=== PATIENT | female | born 1965 | race Caucasian/White ===

== ENCOUNTER 2018-03-01 06:54 | Inpatient (IN) | payer OTHER ==
[2018-02-03 11:30] VITALS: Ht 172.7 cm; Wt 114.1 kg
[2018-02-03 12:02] LABS: BASO % 0.6 %; BASO ABS # 0.04 K/uL (0-0.2); EOS % 1.6 %; EOS ABS # 0.11 K/uL (0-0.5); HEMATOCRIT 40.9 % (37-47); HEMOGLOBIN 13.4 g/dL (12.0-16.0); IG# 0.01 K/uL (0.00-0.02); LYMPH % 31.7 %; LYMPH ABS # 2.14 K/uL (1.2-3.4); MEAN CELL VOLUME 88.9 fL (80-100); MEAN CORPUSCULAR HEMOGLOBIN 29.1 pg (25-34); MEAN CORPUSCULAR HGB CONC 32.8 g/dl (32-36); MEAN PLATELET VOLUME 11.2 fL (7.4-10.4); MONO % 10.2 %; MONO ABS # 0.69 K/uL (0.11-0.59); NEUT % 55.8 %; NEUT ABS # 3.76 K/uL (1.4-6.5); PLATELET COUNT 289 K/uL (130-400); RED CELL DISTRIBUTION WIDTH CV 13.4 % (11.5-14.5); RED CELL DISTRIBUTION WIDTH SD 43.7 fL (36.4-46.3); WHITE BLOOD COUNT 6.75 K/uL (4.8-10.8)
--- NOTE | 2018-02-03 12:04 | PAT Medication Instructions ---
Service Date Feb 03, 2018. Current Home Medication List Esomeprazole Magnesium (Nexium), 40 MG PO QPM Ferrous Sulfate (Kp Ferrous Sulfate), 1 TAB PO QD PRN for prn Magnesium Oxide (Mag-Ox), 400 MG PO QD PRN for prn Metoprolol Succ (Toprol Xl) (Toprol-Xl), 50 MG PO HS Terbinafine Hcl (Terbinafine Hcl), 1 TAB PO QPM Medication Instructions For Your Scheduled Surgery - Hold the following medications the morning of surgery: Ferrous Sulfate (Kp Ferrous Sulfate), 1 TAB PO QD PRN for prn Magnesium Oxide (Mag-Ox), 400 MG PO QD PRN for prn - Take the following medications the morning of surgery with a sip of water: Esomeprazole Magnesium (Nexium), 40 MG PO - Take the following medications as scheduled the night before surgery: Esomeprazole Magnesium (Nexium), 40 MG PO Ferrous Sulfate (Kp Ferrous Sulfate), 1 TAB PO QD PRN for prn (if needed) Magnesium Oxide (Mag-Ox), 400 MG PO QD PRN for prn (if needed) Metoprolol Succ (Toprol Xl) (Toprol-Xl), 50 MG PO HS Terbinafine Hcl (Terbinafine Hcl), 1 TAB PO QPM If you have any questions please call us at [phone] or [phone] or [phone]
[2018-02-03 12:11] LABS: PTT PATIENT 26.7 SECONDS (21.0-31.0)
--- NOTE | 2018-02-03 12:36 | DIAGNOSTIC IMAGING REPORT ---
TWO VIEW CHEST CLINICAL HISTORY: Preoperative examination. FINDINGS: PA and lateral chest radiographs are obtained. No prior studies are available for comparison at the time of dictation. The cardiomediastinal silhouette is unremarkable. The lungs and pleural spaces are clear. There is no pneumothorax. The bony thorax appears intact. IMPRESSION: No active disease in the chest. Electronically signed by: Jerrod Jarquin M.D. 02/03/2018 12:35 PM Dictated Date/Time: 02/03/2018 12:34 PM
[2018-02-03 12:39] LABS: HEMOGLOBIN A1C 5.6 % (4.5-5.6)
[2018-02-03 13:28] LABS: ALBUMIN 3.5 gm/dl (3.4-5.0); CALCIUM 9.1 mg/dl (8.5-10.1); CREATININE 0.83 mg/dl (0.60-1.20)
--- NOTE | 2018-02-10 10:57 | HISTORY & PHYSICAL EXAMINATION ---
DATE OF ADMISSION: 03/01/2018 CHIEF COMPLAINT: Right knee pain. HISTORY OF PRESENT ILLNESS: Libra is a 53-year-old female with a multiple year history of right knee pain. The patient rates her pain 9/10. She has pain with her daily activities. She has limited standing and walking tolerance. Pain is worse with weightbearing. The patient has had injections, bracing, knee arthroscopy, PT, and NSAIDs over the years without relief. She has failed conservative treatment and is scheduled for right knee replacement. PAST MEDICAL HISTORY: Hypertension. She denies heart disease, diabetes, or DVT. PAST SURGICAL HISTORY: Right knee arthroscopy and hysterectomy. SOCIAL HISTORY: The patient rarely drinks alcohol. She denies tobacco use. She lives in a 2-leonardo home. 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 FAMILY HISTORY: Negative for DVT. MEDICATIONS: Ferrous sulfate 325 mg daily, mag oxide 400 mg, metoprolol 50 mg, Nexium 40 mg. ALLERGIES: None. REVIEW OF SYSTEMS: See HPI. Ten other systems reviewed, all negative. PHYSICAL EXAMINATION: VITAL SIGNS: Height 5 foot 8 inches, weight 250 pounds, BMI 38. GENERAL: This is a well-developed, well-nourished female who is alert and oriented x3. Mood and affect are appropriate. HEENT: Normocephalic, atraumatic. Mucous membranes are moist and intact. NECK: Supple without lymphadenopathy. HEART: Regular rate and rhythm without murmurs, rubs, or gallops. LUNGS: Clear to auscultation without wheezes or rhonchi. ABDOMEN: Soft and nontender. Bowel sounds are equal and active. EXTREMITIES: No ecchymosis, redness, or warmth. She has moderate Hinkle cyst, moderate effusion. She has no distal edema. She has neutral alignment. Range of motion is from 5-110 degrees with +1 medial laxity. She is neurovascularly intact with +5/5 strength. X-RAY EXAMINATION: AP and lateral views show joint space narrowing and osteophyte formation. IMPRESSION: Degenerative joint disease, right knee. PLAN: The patient will be admitted for a right total knee arthroplasty. We will plan on aspirin for DVT prophylaxis. The patient will have home health upon discharge.
[2018-02-28 12:56] VITALS: BP 121/78; PULSE 74; TEMP 37.2; O2SAT 100
[2018-03-01] VITALS (8 sets, daily range): BP systolic 106–143; BP diastolic 65–83; PULSE 71–90; TEMP 36.5–37.3; O2SAT 93–99
[~2018-03-01] VITALS: Ht 172.7 cm; Wt 114.1 kg
[~2018-03-01 06:54] MED LIST: ACETAMINOPHEN 500 MG TAB PO SCH; CEFAZOLIN 2000MG IV PUSH 15 ML IV SCH; CeleBREX 200 MG CAP PO SCH; DEXAMETHASONE 4 MG TAB PO SCH; FAMOTIDINE 20 MG TAB PO SCH; FERR1TAB13 PO; GABAPENTIN 900 MG PO SCH; LACTATED RINGER'S 1000ML 500 ML IV SCH; MAGN400T6 PO; METO50TA8 PO; NXM/40 PO; ROPIVACAINE 5MG/ML 30 ML 150 MG, BUPIVACAINE 0.5% MPF INJ 30 ML, EpINEphrine HCL INJ 0.... INFIL SCH; TERB250T47 PO
--- NOTE | 2018-03-01 07:01 | History & Physical Bridge Note ---
H&P Re-Evaluation Bridge Note: I have examined the patient, reviewed the History & Physical and in the interval since the performance of the History & Physical I have noted the following changes of clinical significance: No changes noted
[2018-03-01] MEDS ORDERED: BUPIVACAINE 0.25% 30 ML VIAL ONE (07:27)
[2018-03-01] MEDS ORDERED: BUPIVACAINE 0.5 % 5 MG/1 ML PF 10ML VIAL ONE (07:28)
[2018-03-01] MEDS ORDERED: MIDAZOLAM HCL 1 MG/ML 2ML VIAL ONE (08:00)
[2018-03-01] MEDS ORDERED: FENTANYL CITRATE INJ 50 MCG/1 ML 2 ML VIAL ONE ×4 (08:01→11:22)
[2018-03-01] MEDS ORDERED: EpHEDrine SULFATE INJ 50 MG/ML AMP IV PRN (08:30)
[2018-03-01] MEDS ORDERED: ATROPINE SULFATE 0.1 MG/ML 5ML SYR IV PRN (08:30)
[2018-03-01] MEDS ORDERED: PHENYLEPHRINE 100MCG/ML 5ML SYR IV PRN (08:30)
[2018-03-01] MEDS ORDERED: FENTANYL CITRATE INJ 50 MCG/1 ML 2 ML VIAL IV PRN (08:30)
[2018-03-01] MEDS ORDERED: HYDROmorphone INJ 1 MG/ML SYR IV PRN (08:30)
[2018-03-01] MEDS ORDERED: PROMETHAZINE HCL INJ 12.5 MG in SODIUM CHLORIDE 0.9% 50ML 50 ML IV PRN (08:30)
[2018-03-01] MEDS ORDERED: ONDANSETRON INJ 2 MG/ML 2 ML VIAL IV PRN ×2 (08:30→11:15)
[2018-03-01] MEDS ORDERED: POVIDONE-IODINE OP SOLN 30 ML BTL ONE (08:38)
[2018-03-01] MEDS ORDERED: ORTHO JOINT ANESTHETIC ONE (08:38)
[2018-03-01] MEDS ORDERED: BACITRACIN 50000 UNIT VIAL ONE (08:38)
[2018-03-01] MEDS ORDERED: ROPIVACAINE 0.5% 5 MG/ML 30 ML VIAL ONE (09:00)
[2018-03-01] MEDS: TRANEXAMIC ACID INJ 1,000 MG x 2 Bags IV SCH ×4 (09:02→12:24)
--- NOTE | 2018-03-01 10:26 | [facility] Post Operative Brief Note ---
Immediate Operative Summary Operative Date March 01, 2018. Pre-Operative Diagnosis Right Knee Degenerative Joint Disease Post-Operative Diagnosis Right Knee Degenerative Joint Disease Procedure(s) Performed Right Total Knee Arthroplasty utilizing [employer] journey to size 5 femur 4/tibia 9 polyethylene [address] Adair [employer] Molder Surgeon(s) ODALYS Sanches Estimated Blood Loss 5 ml Findings Consistent with Post-Op Diagnosis Specimens A. Right Knee Bone and Tissue Anesthesia Type General Complication(s) none Disposition Disposition: Recovery Room / PACU
--- NOTE | 2018-03-01 10:27 | [facility] Operative Report ---
Operative Report Operative Date March 01, 2018. Pre-Operative Diagnosis Right Knee Degenerative Joint Disease Post-Operative Diagnosis Right Knee Degenerative Joint Disease Procedure(s) Performed Right Total Knee Arthroplasty utilizing [employer] nephew journey to size 5 femur 4/tibia 9 polyethylene [address] Adair Edge Dyer Surgeon(s) ODALYS Sanches Estimated Blood Loss 5 ml Findings This time surgery patient did have evidence of bone the bone changes subchondral sclerosis cystic changes marginal osteophytes varus alignment pseudolaxity of her medial collateral ligament with the eburnated bone changes Specimens A. Right Knee Bone and Tissue Anesthesia Type General Complication(s) none Disposition Recovery Room / PACU Indications Patient presents after failed attempts at conservative management including physical therapy anti-inflammatories relative rest activity modification or clinical examination consistent of a moderate effusion medial joint line pain tenderness crepitation palpable osteophytes and radiographic findings include subchondral sclerosis cystic changes marginal osteophytes consistent with that of tricompartmental degenerative joint disease Description of Procedure After proper prepping and draping of the Right lower extremity anterior midline incision was made over the region of the extensor extensor mechanism after meticulous hemostasis was obtained and maintained in subcutaneous tissues a medial parapatellar incision was made The patella was subluxed lateralward the medial lateral gutter were cleaned from any hypertrophic synovitis and scar tissue of the distal femoral block was placed and the distal femoral osteotomy cut was made subsequently the chamfers anterior and posterior osteotomy cuts were made utilizing the 4-in-1 block the tibia was subsequently subluxed anteriorward medial and ateral meniscal remnants were excised in their entirety remnants of the anterior and posterior cruciate ligaments were excised in their entirety excellent exposure of the proximal tibia was obtained the tibial osteotomy guide was placed on the proximal tibial osteotomy cut was made once again the knee was irrigated with copious amounts of sterile saline solution the patella was subsequently everted lateralward thickened scar tissue around the patella was removed the patella was subsequently cut utilizing a freehand technique and was drilled prepared for final preparation and placement of patella socially flexion-extension gaps were checked and the equal and symmetric trials were placed to the appropriate femoral and tibial trials with poly-spacer being placed for equal flexion and extension gaps and full range of motion including extension to 0 and flexion to 140 the trial components after having been taken to recovery range of motion was subsequently removed meticulous hemostasis was obtained and maintained subsequently a knee block injection of joint cocktail including ropivacaine 0.5% 150 mg. Bupivacaine 0.5 % epinephrine 1-200,030 mL's toradol 30 mg dexamethasone 4 mg ketamine 10 mg clonidine 100 micrograms normal saline solution 30 mg was infiltrated into the soft tissues of the posterior knee medial lateral gutters and periosteal synovium special attention was paid to protect neurovascular structures at all times subsequently trial components having been removed the knee was irrigated with sterile saline solution. debris was removed the proximal tibia was subsequently prepared and was made ready for the placement of the tibial component tibial component was also cemented and tamped into position the femoral component was subsequently placed and cemented in the position the patellar component was subsequently cemented in position because hemostasis once again obtained and maintained wound having been thoroughly irrigated with debridement and debridement lavage was performed as well as a medial parapatellar incision closed with #1 Vicryl in interrupted fashion subcutaneous was closed with #2 Vicryl skin was closed with skin clips. PA-C was necessary for prepping and drapping as well as wound closure of deep fascia Sub cutaneous tissue and skin and was necessary for the case. A sterile compressive dressing was placed patient was taken to recovery in stable condition of report dictated by Giovany I attest to the content of the Intraoperative Record and any orders documented therein. Any exceptions are noted below. I attest to the content of the Intraoperative Record and any orders documented therein. Any exceptions are noted below.
[2018-03-01] MEDS ORDERED: DEXAMETHASONE SOD INJ 4 MG/ML VIAL ONE (10:43)
[2018-03-01] MEDS ORDERED: ONDANSETRON INJ 2 MG/ML 2 ML VIAL ONE (10:43)
[2018-03-01] MEDS ORDERED: METOCLOPRAMIDE HCL INJ 5 MG/ML 2 ML VIAL ONE (10:43)
[2018-03-01] MEDS ORDERED: PROPOFOL IV EMULSION 10 MG/ML 20 ML VIAL ONE (10:43)
[2018-03-01] MEDS ORDERED: DiphenhydrAMINE HCL 50 MG/ML VIAL ONE (10:43)
[2018-03-01] MEDS ORDERED: LIDOCAINE HCL 2% 2 ML VIAL (20MG/ML) ONE (10:43)
[2018-03-01] MEDS ORDERED: KETOROLAC TROMETHAMINE 30 MG/ML VIAL IV. PRN (11:15)
[2018-03-01] MEDS ORDERED: MAGNESIUM HYDROXIDE SUSP 30 ML UDC PO PRN (11:15)
[2018-03-01] MEDS ORDERED: MAGNESIUM OXIDE 400 MG TAB PO PRN (11:15)
[2018-03-01] MEDS ORDERED: BISACODYL 10 MG SUPP PR PRN (11:15)
[2018-03-01] MEDS ORDERED: CEFAZOLIN IV 2,000 MG in DEXTROSE 5% 50ML 50 ML IV SCH (11:15)
[2018-03-01] MEDS ORDERED: ALUMINUM/MAGNESIUM/SIMETH (MAALOX MAX) 30 ML UDC PO PRN (11:15)
[2018-03-01] MEDS ORDERED: MoRPHine SULFATE 4 MG/ML 1 ML CARP\\VIAL IV PRN (11:15)
[2018-03-01] MEDS ORDERED: SOD PHOSPHATE/SOD BIPHOSPHATE ENEMA 132 ML BTL PR PRN (11:15)
[2018-03-01] MEDS ORDERED: ZOLPIDEM TARTRATE 5 MG TAB PO PRN (11:15)
[2018-03-01] MEDS ORDERED: HYDROmorphone INJ 2 MG/ML SYR/VIAL ONE (11:23)
--- NOTE | 2018-03-01 12:06 | DIAGNOSTIC IMAGING REPORT ---
R KNEE 1 OR 2 VIEWS ROUTINE CLINICAL HISTORY: 53 years-old Female presenting with AP/LATERAL IN PACU RIGHT KNEE. TECHNIQUE: Frontal and lateral views of the right knee were obtained. COMPARISON: None. FINDINGS: Postsurgical changes of total right knee arthroplasty with patellar resurfacing. Expected intra-articular and soft tissue emphysema. A surgical drain is in place. No periprosthetic fracture. The femoral component demonstrates slight varus alignment. No hardware complication. IMPRESSION: Postsurgical changes status post total right knee arthroplasty with patellar resurfacing. Correlate clinically for expected alignment given the presence of slight varus angulation of the femoral component. The report will be called/faxed according to standard departmental protocol. Electronically signed by: Bunny Abreu M.D. 03/01/2018 12:04 PM Dictated Date/Time: 03/01/2018 12:03 PM
--- NOTE | 2018-03-01 12:07 | Anesthesiology Progress Note ---
Anesthesia Post Op Note Date & Time March 01, 2018 at 12:07 Vital Signs Pain Intensity: 3 Vital Signs Past 12 Hours Date Time Temp Pulse Resp B/P (MAP) Pulse Ox O2 Delivery O2 Flow Rate FiO2 03/01/18 11:47 36.9 84 16 119/80 (93) 96 Nasal Cannula 2 03/01/18 11:43 77 12 03/01/18 11:43 75 12 98 03/01/18 11:41 126/83 03/01/18 11:38 84 19 03/01/18 11:38 85 19 98 03/01/18 11:37 81 13 99 03/01/18 11:37 81 13 03/01/18 11:36 127/86 03/01/18 11:32 77 12 100 03/01/18 11:32 79 12 03/01/18 11:31 137/84 03/01/18 11:27 83 14 03/01/18 11:27 83 14 99 03/01/18 11:26 134/93 03/01/18 11:22 87 13 100 03/01/18 11:22 84 13 03/01/18 11:21 150/87 03/01/18 11:20 140/83 03/01/18 11:17 90 17 03/01/18 11:17 90 17 100 03/01/18 11:12 92 21 119/85 97 03/01/18 11:12 36.6 89 16 119/85 (102) 97 Oxymask 10 03/01/18 11:12 93 21 03/01/18 08:03 37 71 71 143/69 97 Room Air Notes Mental Status: alert / awake / arousable, participated in evaluation Pt Amnestic to Procedure: Yes Nausea / Vomiting: adequately controlled Pain: adequately controlled Airway Patency, RR, SpO2: stable & adequate BP & HR: stable & adequate Hydration State: stable & adequate Anesthetic Complications: no major complications apparent Pt doing well. Pain controlled with adductor canal and IV pain meds due to patient refusing spinal anesthesia. VSS.
[2018-03-01] MEDS: D5W AND 1/2NSS + 20MEQ KCL 1,000 ML IV SCH ×2 (12:56→22:55)
[2018-03-01] MEDS ORDERED: MoRPHine SULFATE 10 MG/ML CARP/VIAL IV PRN (13:00)
--- NOTE | 2018-03-01 13:54 | DIAGNOSTIC IMAGING REPORT ---
R KNEE 1 OR 2 VIEWS ROUTINE CLINICAL HISTORY: post op, repeat make sure in full extension for AP COMPARISON: None. DISCUSSION: Anatomic alignment posttotal right knee arthroplasty. Good contact between prosthetic and underlying bone. Surgical drains are in position. Expected soft tissue postoperative change. IMPRESSION: Anatomic alignment posttotal right knee arthroplasty. The above report was generated using voice recognition software. It may contain grammatical, syntax or spelling errors. Electronically signed by: Dereje Hernandez M.D. 03/01/2018 1:53 PM Dictated Date/Time: 03/01/2018 1:52 PM
[2018-03-01] MEDS: ACETAMINOPHEN 500 MG TAB PO SCH ×2 (15:43→22:55)
[2018-03-01] MEDS ORDERED: FERROUS SULFATE 325 MG TAB PO PRN (17:45)
[2018-03-01] MEDS: CEFAZOLIN IV 2,000 MG in SYRINGE 0 ML IV SCH ×2 (18:24→18:27)
[2018-03-01] MEDS: OXYCODONE HCL IR 5 MG TAB (IMMEDIATE RELEASE) PO PRN (18:24)
[2018-03-01] MEDS: METOPROLOL SUCC 50MG EXT REL TAB PO SCH (21:06)
[2018-03-01] MEDS: ASPIRIN 81 MG ECTAB PO SCH (21:06)
[2018-03-01] MEDS: SENNA 8.6 MG TAB PO SCH (21:07)
[2018-03-01] MEDS: DOCUSATE SODIUM 100 MG CAP PO SCH (21:07)
[2018-03-02] VITALS (7 sets, daily range): BP systolic 103–176; BP diastolic 65–96; PULSE 66–79; TEMP 36.5–36.7; O2SAT 94–100
[2018-03-02] MEDS: OXYCODONE HCL IR 5 MG TAB (IMMEDIATE RELEASE) PO PRN ×4 (01:39→23:41)
[2018-03-02] MEDS: CEFAZOLIN IV 2,000 MG in SYRINGE 0 ML IV SCH (01:39)
[2018-03-02] MEDS: ACETAMINOPHEN 500 MG TAB PO SCH ×3 (06:14→21:41)
--- NOTE | 2018-03-02 08:15 | Orthopedic Progress Note ---
Orthopedic Progress Note Date of Service March 02, 2018. Subjective Post OP Day: 1 Reports: feeling well, Denies: chest pain, SOB, nausea / vomiting, light headedness, calf pain Objective calves soft nontender, N/V intact, capillary refill less than 2 sec., dressing C /D/I, A&O x3, toes mobile, hemovac drainage (200/200CC PER SHIFT) Date Time Temp Pulse Resp B/P (MAP) Pulse Ox O2 Delivery O2 Flow Rate FiO2 03/02/18 02:30 36.6 79 16 120/71 (87) 94 Room Air 03/02/18 00:15 Room Air 03/01/18 22:57 36.8 77 16 106/65 (79) 96 Room Air 03/01/18 21:08 86 111/67 (82) 03/01/18 19:50 36.9 90 18 120/69 (86) 96 Room Air 03/01/18 15:15 36.5 77 16 120/75 (90) 99 Nasal Cannula 2.0 03/01/18 14:25 72 16 121/76 (91) 99 03/01/18 12:45 71 15 133/77 (95) 98 03/01/18 12:15 Nasal Cannula 2.0 03/01/18 12:15 Nasal Cannula 2.0 03/01/18 12:15 37.3 80 16 128/83 (98) 93 Nasal Cannula 2.0 03/01/18 11:47 36.9 84 16 119/80 (93) 96 Nasal Cannula 2 03/01/18 11:43 77 12 03/01/18 11:43 75 12 98 03/01/18 11:41 126/83 03/01/18 11:38 84 19 03/01/18 11:38 85 19 98 03/01/18 11:37 81 13 99 03/01/18 11:37 81 13 03/01/18 11:36 127/86 03/01/18 11:32 77 12 100 03/01/18 11:32 79 12 03/01/18 11:31 137/84 03/01/18 11:27 83 14 03/01/18 11:27 83 14 99 03/01/18 11:26 134/93 03/01/18 11:22 87 13 100 03/01/18 11:22 84 13 03/01/18 11:21 150/87 03/01/18 11:20 140/83 03/01/18 11:17 90 17 03/01/18 11:17 90 17 100 03/01/18 11:12 92 21 119/85 97 03/01/18 11:12 36.6 89 16 119/85 (102) 97 Oxymask 10 03/01/18 11:12 93 21 Laboratory Results 24 Hours: Test 03/02/18 04:44 Assessment & Plan Assessment: POD#1 SP RIGHT TKA Plan: PT/OT DVT PROPH- ASA 81MG BID PAIN MANAGEMENT- OXY, TYLENOL DC PLLANING- DC HOME WITH TUESDAY
[2018-03-02 08:42] LABS: HEMATOCRIT 36.6 % (37-47); HEMOGLOBIN 11.9 g/dL (12.0-16.0); MEAN CELL VOLUME 89.9 fL (80-100); MEAN CORPUSCULAR HEMOGLOBIN 29.2 pg (25-34); MEAN CORPUSCULAR HGB CONC 32.5 g/dl (32-36); PLATELET COUNT 274 K/uL (130-400); RED CELL DISTRIBUTION WIDTH CV 13.8 % (11.5-14.5); RED CELL DISTRIBUTION WIDTH SD 45.6 fL (36.4-46.3); WHITE BLOOD COUNT 18.98 K/uL (4.8-10.8)
[2018-03-02] MEDS: DOCUSATE SODIUM 100 MG CAP PO SCH ×2 (08:53→21:00)
[2018-03-02] MEDS: D5W AND 1/2NSS + 20MEQ KCL 1,000 ML IV SCH (08:53)
[2018-03-02] MEDS: MULTIVITAMIN TAB PO SCH (08:53)
[2018-03-02] MEDS: ASPIRIN 81 MG ECTAB PO SCH ×2 (08:54→21:40)
[2018-03-02] MEDS: PANTOprazole SOD 40 MG TAB PO SCH (08:54)
[2018-03-02 09:06] LABS: CALCIUM 8.4 mg/dl (8.5-10.1); CREATININE 0.88 mg/dl (0.60-1.20); POTASSIUM 4.1 mmol/L (3.5-5.1)
[2018-03-02] MEDS: TRAMADOL HCL 50 MG TAB PO PRN ×2 (11:58→19:56)
--- NOTE | 2018-03-02 12:37 | Discharge Instructions ---
Discharge Instructions Date of Service March 02, 2018. Admission Reason for Admission: Right Knee Osteoarthritis Discharge Discharge Diagnosis / Problem: Right total knee replacement Discharge Goals Goal(s): Decrease discomfort, Improve function, Increase independence Activity Recommendations Activity Limitations: as noted below Weightbearing Status: Right weightbearing (as tolerated) . Instructions / Follow-Up Instructions / Follow-Up ACTIVITY RECOMMENDATIONS: SELF CARE INSTRUCTIONS AFTER TOTAL KNEE REPLACEMENT A. You may need to continue a physical therapy program after discharge from the hospital. There are several options available to you. Your doctor will assist you in selecting the best one for you. 1. An out-patient facility 2 to 3 times a week for therapy or home therapy. 2. Continue working on all exercises taught to you in the hospital. Your goals should be to increase bending of your knee to 90 degrees and beyond and to fully straighten your knee. B. You may progress at your own pace from walking with a walker or crutches to a cane; then to no assistive devices. C. Make walking a part of your daily routine. Be up as much as comfortable with rest periods throughout the day. Rest with leg elevation is very important. Use the ice wrap frequently for the first 3-4 weeks. D. There are no restrictions on activities. You may ride in a car, shop, participate in investment associate and all social activities. E. Wear the long elastic stockings (MADALYN hose) 20 hours a day for 2 weeks after surgery. They can be removed several times a day for laundering and for a bath. F. You may shower, no tub baths until cleared by your doctor. SPECIAL CARE INSTRUCTIONS: VERY IMPORTANT TO READ AND REVIEW A. There are a few signs you need to watch for after you are home. Call [facility] if you notice any of the followin. Increased severe knee pain. Some pain is expected especially when you exercise. 2. Increased swelling in your leg or knee; pain or swelling of the calf muscle in either lower leg. 3. Any fluid drainage from the incision. 4. Shortness of breath or chest pain. B. Please call [facility] at if you have any concerns or questions about your operation or recovery. The doctor or his nurse will return your call promptly. C. You must take antibiotics before dental work, bladder, bowel or other surgery. Your doctor will provide you with a permanent care to carry describing this precaution. IMPORTANT: * REMEMBER TO TAKE ASPIRIN, 81 MG, TWICE DAILY FOR 4 WEEKS UNLESS OTHERWISE DIRECTED. THIS IS YOUR BLOOD THINNER. * HIGH RISK PATIENTS MAY BE PRESCRIBED A STRONGER BLOOD THINNER. THIS WILL BE PROVIDED AT DISCHARGE. * CALL IF INCREASED PAIN, REDNESS, DRAINAGE OR FEVER GREATER THAT 101. * WEAR MADALYN HOSE 20 HOURS PER DAY FOR 2 WEEKS. * DERMABOND Prineo- This is a mesh tape dressing that is covered with glue. It should remain in place until the incision is properly healed, usually 10-14 days. This dressing is designed to naturally slough off. You may trim the excess mesh tape as it peels off. Incision may be briefly wet in a shower. Dry immediately by blotting with a clean, dry towel. Do not bath or swim until instructed by your doctor. Do not scratch, rub, or pick at the dressing. Do not apply any topical ointments or lotions until dressing is completely removed and/or instructed by your doctor. There may be a small piece of suture material at one end of your incision. Do not pull or trim this. If it is bothersome or catching on clothing, you may cover it with a band-aid. FOLLOW UP VISIT: If appointment is not already scheduled: Please call [facility] to make a follow-up appointment for 2 weeks after your surgery at . Current Hospital Diet Patient's current hospital diet: Regular Diet Discharge Diet Recommended Diet: Regular Diet Procedures Procedures Performed: Right Total Knee Arthroplasty utilizing [employer] journey to size 5 femur 4/tibia 9 polyethylene 29 oval patella Pending Studies Studies pending at discharge: no Laboratory Results Hemoglobin A1c Test 02/03/18 11:40 Range/Units Estimated Average Glucose 114 mg/dl Hemoglobin A1c 5.6 4.5-5.6 % Medical Emergencies . Who to Call and When: Medical Emergencies: If at any time you feel your situation is an emergency, please call 911 immediately. . Non-Emergent Contact Non-Emergency issues call your: Primary Care Provider, Surgeon . "Provider Documentation" section prepared by Dereje De La Garza. . [place] Drug Monitoring Program Search Results: patient reviewed within database, no issues identified
[2018-03-02] MEDS ORDERED: TERBINAFINE 250 MG TAB PO SCH (21:00)
[2018-03-02] MEDS: SENNA 8.6 MG TAB PO SCH (21:00)
[2018-03-02] MEDS: METOPROLOL SUCC 50MG EXT REL TAB PO SCH (21:39)
[2018-03-02] MEDS: CeleBREX 200 MG CAP PO SCH (21:40)
[2018-03-03] MEDS: ACETAMINOPHEN 500 MG TAB PO SCH (06:01)
--- NOTE | 2018-03-03 06:35 | Orthopedic Progress Note ---
Orthopedic Progress Note Date of Service March 03, 2018. Subjective Post OP Day: 2 Reports: feeling well, pain controlled w PO medications, Denies: complaints, chest pain, SOB, nausea / vomiting, light headedness, calf pain Objective calves soft nontender, N/V intact, capillary refill less than 2 sec., incision C /D/I, A&O x3, toes mobile Date Time Temp Pulse Resp B/P (MAP) Pulse Ox O2 Delivery O2 Flow Rate FiO2 03/02/18 23:30 99 Room Air 2.0 03/02/18 22:54 152/84 (106) 03/02/18 22:52 36.7 79 16 176/96 (122) 99 Room Air 03/02/18 17:30 Room Air 03/02/18 14:55 36.5 76 18 145/82 (103) 99 Room Air 03/02/18 13:25 36.7 66 16 119/69 (86) 100 Room Air 03/02/18 08:15 36.7 70 15 103/65 (78) 98 Room Air 03/02/18 07:40 Room Air Laboratory Results 24 Hours: Test 03/02/18 08:10 Hematocrit 36.6 % Hemoglobin 11.9 g/dL Prothromb Time International Ratio 1.0 Prothrombin Time 10.0 SECONDS Assessment & Plan Assessment: POD#2 SP RIGHT TKA Plan: PT/OT DVT PROPH- ASA 81MG BID PAIN MANAGEMENT- OXY, TYLENOL DC PLLANING- DC HOME WITH TUESDAY Inhouse Planning DVT Prophylaxis: TEDs, SCDs, ASA Discharge Planning Discharge Planning: home with home health
[2018-03-03] MEDS ORDERED: CLB200 PO (06:38)
[2018-03-03] MEDS ORDERED: RXC5 PO (06:38)
[2018-03-03] MEDS ORDERED: CLC100 PO (06:38)
[2018-03-03] MEDS ORDERED: ACET-24 PO (06:38)
[2018-03-03] MEDS ORDERED: ONDA-170 PO (06:38)
[2018-03-03] MEDS ORDERED: ASPI-320 PO (06:38)
[2018-03-03 06:56] VITALS: BP 135/84; PULSE 67; TEMP 36.9; O2SAT 98
[2018-03-03] MEDS: ASPIRIN 81 MG ECTAB PO SCH (07:22)
[2018-03-03] MEDS: CeleBREX 200 MG CAP PO SCH (07:23)
[2018-03-03] MEDS: DOCUSATE SODIUM 100 MG CAP PO SCH (07:23)
[2018-03-03] MEDS: PANTOprazole SOD 40 MG TAB PO SCH (07:23)
[2018-03-03] MEDS: OXYCODONE HCL IR 5 MG TAB (IMMEDIATE RELEASE) PO PRN (07:26)
[2018-03-03] MEDS: MULTIVITAMIN TAB PO SCH (07:39)
[2018-03-03] MEDS: TRAMADOL HCL 50 MG TAB PO PRN (10:33)
[2018-03-03 10:39] VITALS: BP 135/84; PULSE 67; TEMP 36.9; O2SAT 98
--- NOTE | 2018-03-03 14:23 | Discharge Summary ---
Orthopedic Discharge Summary Admission Date/Reason March 01, 2018 at 08:00 Right Knee Osteoarthritis. Discharge Date/Disposition March 03, 2018 Home with services Diagnosis Principal Diagnosis: right knee osteoarthritis Procedure(s) Performed Right Total Knee Arthroplasty utilizing Tirado neph journey to size 5 femur 4/tibia 9 polyethylene 29 oval patella Consultations NONE Medication Reconciliation New Medications: Ondansetron Hcl (Zofran) 8 Mg Tab 8 MG PO Q8 PRN for Nausea, #20 TAB Acetaminophen (Sb Non-Aspirin Extra Stre) 500 Mg Tab 1000 MG PO Q8, #63 TAB Aspirin (Aspirin EC Low Dose) 81 Mg Ectab 81 MG PO BID for 30 Days, #60 TAB Celecoxib (Celebrex) 200 Mg Cap 200 MG PO BID for 30 Days, #60 CAP Docusate Sodium (Docusate Sodium) 100 Mg Cap 100 MG PO BID for 10 Days, #20 CAP Oxycodone HCl (Oxycodone HCl) 5 Mg Tab 5-10 MG PO Q4H PRN for Pain, #60 TAB Continued Medications: Esomeprazole Magnesium (Nexium) 40 Mg Capcr 40 MG PO QPM, CAP Ferrous Sulfate (Kp Ferrous Sulfate) 325 Mg Tab 1 TAB PO QD PRN for prn for 30 Days, #30 TAB 3 Refills Magnesium Oxide (Mag-Ox) 400 Mg Tab 400 MG PO QD PRN for prn, TAB Metoprolol Succ (Toprol Xl) (Toprol-Xl) 50 Mg Tabcr 50 MG PO HS, #30 TAB Terbinafine Hcl (Terbinafine Hcl) 250 Mg Tab 1 TAB PO QPM for 30 Days, TAB Admission Physical Exam As per Admitting History & Physical. Hospital Course Patient was a same day admission after undergoing a successful right TKA. She tolerated the procedure well. Post-operatively, her activity was progressed and well tolerated. Please refer to daily progress notes and PT notes for complete details. After exam on 03/03/18, patient felt to be stable for discharge home with HHPT. Patient will f/u in the office in 2 weeks for further evaluation including x-rays and incision check, sooner if having any issues or concerns. Below are pertinent labs/studies during their hospital stay: Last Resulted CBC 03/02/18 08:10 Last Resulted BMP 03/02/18 08:10 Last Vital Signs Documentation Date Time Temp Pulse Resp B/P (MAP) Pulse Ox O2 Delivery O2 Flow Rate FiO2 03/03/18 10:39 36.9 67 14 98 Room Air 03/03/18 06:56 135/84 (101) 03/02/18 23:30 2.0 Discharge Instructions ACTIVITY RECOMMENDATIONS: SELF CARE INSTRUCTIONS AFTER TOTAL KNEE REPLACEMENT A. You may need to continue a physical therapy program after discharge from the hospital. There are several options available to you. Your doctor will assist you in selecting the best one for you. 1. An out-patient facility 2 to 3 times a week for therapy or home therapy. 2. Continue working on all exercises taught to you in the hospital. Your goals should be to increase bending of your knee to 90 degrees and beyond and to fully straighten your knee. B. You may progress at your own pace from walking with a walker or crutches to a cane; then to no assistive devices. C. Make walking a part of your daily routine. Be up as much as comfortable with rest periods throughout the day. Rest with leg elevation is very important. Use the ice wrap frequently for the first 3-4 weeks. D. There are no restrictions on activities. You may ride in a car, shop, participate in sales representative malt liquors and all social activities. E. Wear the long elastic stockings (MADALYN hose) 20 hours a day for 2 weeks after surgery. They can be removed several times a day for laundering and for a bath. F. You may shower, no tub baths until cleared by your doctor. SPECIAL CARE INSTRUCTIONS: VERY IMPORTANT TO READ AND REVIEW A. There are a few signs you need to watch for after you are home. Call [facility] if you notice any of the followin. Increased severe knee pain. Some pain is expected especially when you exercise. 2. Increased swelling in your leg or knee; pain or swelling of the calf muscle in either lower leg. 3. Any fluid drainage from the incision. 4. Shortness of breath or chest pain. B. Please call [facility] at if you have any concerns or questions about your operation or recovery. The doctor or his nurse will return your call promptly. C. You must take antibiotics before dental work, bladder, bowel or other surgery. Your doctor will provide you with a permanent care to carry describing this precaution. IMPORTANT: * REMEMBER TO TAKE ASPIRIN, 81 MG, TWICE DAILY FOR 4 WEEKS UNLESS OTHERWISE DIRECTED. THIS IS YOUR BLOOD THINNER. * HIGH RISK PATIENTS MAY BE PRESCRIBED A STRONGER BLOOD THINNER. THIS WILL BE PROVIDED AT DISCHARGE. * CALL IF INCREASED PAIN, REDNESS, DRAINAGE OR FEVER GREATER THAT 101. * WEAR MADALYN HOSE 20 HOURS PER DAY FOR 2 WEEKS. * DERMABOND Prineo- This is a mesh tape dressing that is covered with glue. It should remain in place until the incision is properly healed, usually 10-14 days. This dressing is designed to naturally slough off. You may trim the excess mesh tape as it peels off. Incision may be briefly wet in a shower. Dry immediately by blotting with a clean, dry towel. Do not bath or swim until instructed by your doctor. Do not scratch, rub, or pick at the dressing. Do not apply any topical ointments or lotions until dressing is completely removed and/or instructed by your doctor. There may be a small piece of suture material at one end of your incision. Do not pull or trim this. If it is bothersome or catching on clothing, you may cover it with a band-aid. FOLLOW UP VISIT: If appointment is not already scheduled: Please call [facility] to make a follow-up appointment for 2 weeks after your surgery at .
== END 2018-03-03 11:34 | disposition home health service (06) | DRG 470 ==
LOC: C.ACU 06:54 → C.3E 08:00 → ENRESERV 11:41
PROVIDERS: ADMIT Orthopaedic Surgery; ATTEND Orthopaedic Surgery
PROC: 0SRC0J9 Replacement of Right Knee Joint with Synthetic Substitute, Cemented, Open Approach (ICD-10-PCS; principal; 2018-03-01 09:30)
DX: M17.11 Unilateral primary osteoarthritis, right knee (principal); I10 Essential (primary) hypertension; Z79.899 Other long term (current) drug therapy